=== PATIENT | male | born 1955 | race Caucasian/White ===

== ENCOUNTER 2022-11-04 21:09 | Emergency (ER) | payer MEDICARE, OTHER ==
--- NOTE | 2022-11-04 21:24 | ED Lower Extremity ---
General Stated Complaint: LEFT FOOT INJURY History of Present Illness Date Seen by Provider: Nov 04, 2022 Time Seen by Provider: 21:14 Initial Comments 67-year-old male with PMH of DM2, is here with complaints of left foot redness, swelling, and pain for the past 1 week. Patient went to urgent care and was told that he likely has gout and was given a couple tablets of colchicine which she has finished, and which did not help. Denies injury, trauma, falls, fever and chills, calf pain or calf swelling. Allergies and Home Medications Allergies Coded Allergies: No Known Drug Allergies (Unverified , 11/04/22) Patient Home Medication List Home Medication List Reviewed: Yes Review of Systems Constitutional: no symptoms reported EENTM: no symptoms reported Respiratory: no symptoms reported Cardiovascular: no symptoms reported Gastrointestinal: no symptoms reported Genitourinary: no symptoms reported Musculoskeletal: joint swelling Skin: see HPI, lesions Psychiatric/Neurological: No Symptoms Reported Physical Exam Vital Signs Vital Signs - First Documented 11/04/22 21:15 Temp 37.7 Pulse 95 Resp 18 B/P (MAP) 144/72 (96) Pulse Ox 95 O2 Delivery Room Air Capillary Refill : Height, Weight, BMI Height: '" Weight: lbs. oz. kg; BMI Method: General Appearance: WD/WN, no apparent distress HEENT: PERRL/EOMI Legs: left leg non-tender, left leg normal inspection, left leg normal range of motion, left leg no evidence of injury Ankles: left ankle non-tender, left ankle normal inspection, left ankle normal range of motion, left ankle no evidence of injury Feet: left foot normal range of motion, left foot no evidence of injury, left foot infection, left foot soft tissue tenderness, left foot swelling (Nonpitting swelling over the foot, with erythema of the forefoot and toes with a closed blister between the first and second toe. No open wounds seen on the feet. Erythematous area is warm to touch. No discharge or pus seen. N/V bundle intact. Skin marking with marker done.) Progress/Results/Core Measures Results/Orders Lab Results Laboratory Tests Test 11/04/22 21:21 Range/Units White Blood Count 12.6 H 4.3-11.0 10^3/uL Red Blood Count 4.44 4.30-5.52 10^6/uL Hemoglobin 13.2 L 13.3-17.7 g/dL Hematocrit 39 L 40-54 % Mean Corpuscular Volume 87 80-99 fL Mean Corpuscular Hemoglobin 30 25-34 pg Mean Corpuscular Hemoglobin Concent 34 32-36 g/dL Red Cell Distribution Width 12.7 10.0-14.5 % Platelet Count 166 130-400 10^3/uL Mean Platelet Volume 10.6 9.0-12.2 fL Immature Granulocyte % (Auto) 0 % Neutrophils (%) (Auto) 72 42-75 % Lymphocytes (%) (Auto) 19 12-44 % Monocytes (%) (Auto) 8 0-12 % Eosinophils (%) (Auto) 1 0-10 % Basophils (%) (Auto) 1 0-10 % Neutrophils # (Auto) 9.1 H 1.8-7.8 10^3/uL Lymphocytes # (Auto) 2.4 1.0-4.0 10^3/uL Monocytes # (Auto) 1.0 0.0-1.0 10^3/uL Eosinophils # (Auto) 0.1 0.0-0.3 10^3/uL Basophils # (Auto) 0.1 0.0-0.1 10^3/uL Immature Granulocyte # (Auto) 0.0 0.0-0.1 10^3/uL My Orders Orders - DOUGLAS SAENZ MD Cbc With Automated Diff (11/04/22 21:24) Sulfamethoxazole/Trimet Ds Tab (Bactrim (11/04/22 21:30) Vital Signs/I&O 11/04/22 21:15 Temp 37.7 Pulse 95 Resp 18 B/P (MAP) 144/72 (96) Pulse Ox 95 O2 Delivery Room Air Progress Progress Note : Progress Note 1. LEFT FOOT CELLULITIS: - CBC: WBC is elevated to 12 - Pt's vitals stable and afebrile - Bactrim DS STAT in ER, Prescription for BActrim DS Q12H for 12 days prescribed - Follow up with PCP in 3 to 7 days. Make appointment with Podiatry and follow up within a week. -Fever develops, and symptoms worsen or extend past the skin marking, return to ER. -Advised to keep foot clean, and apply antibiotic ointment to the blister -The patient was seen in the ED, and treated appropriately to presentation at a specific point in time. Patient is informed that there is a possibility that disease and illness can evolve and change in acuity rapidly or slowly after patient is discharged from the ER. Precautionary advice given to the patient for immediate return to ER if symptoms worsen or do not resolve, and to seek emergency care sooner rather than later. Pt also advised on the importance of PCP follow up and compliance with management and follow up plan with PCP and/or specialist, as this is part of the management plan. Pt verbally expressed understanding. 2. MEDICATION REFILL: - Metformin 500mg bid , refilled for 14 days until pt can get into PCP Departure Impression Primary Impression: Cellulitis of left foot Disposition: HOME, SELF-CARE Condition: Stable Departure-Patient Inst. Referrals: MARIBELL JIM MD (PCP/Family) Primary Care Physician PODIATRY DR BAPTISTE Patient Instructions: Cellulitis (Skin Infection), Adult (DC), Cellulitis (Skin Infection), Adult ED Add. Discharge Instructions: - Prescription for BActrim DS Q12H for 12 days prescribed - Follow up with PCP in 3 to 7 days. Make appointment with Podiatry and follow up within a week. -If fever develops, and symptoms worsen or extend past the skin marking, return to ER. - Metformin 500mg bid , refilled for 14 days until pt can get into PCP -Advised to keep foot clean, and apply antibiotic ointment to the blister Scripts Sulfamethoxazole/Trimethoprim (Bactrim Ds Tablet) 800 Mg-160 Mg Tablet 1 EACH PO Q12H for 14 Days, #28 TAB Prov: DOUGLAS SAENZ MD 11/04/22 DOUGLAS SAENZ MD Nov 04, 2022 21:24
[2022-11-04 21:30] LABS: BASOPHILS # (AUTO) 0.1 10^3/uL (0.0-0.1); BASOPHILS % (AUTO) 1 % (0-10); EOSINOPHILS # (AUTO) 0.1 10^3/uL (0.0-0.3); EOSINOPHILS % (AUTO) 1 % (0-10); HEMATOCRIT 39 % (40-54); HEMOGLOBIN 13.2 g/dL (13.3-17.7); LYMPHOCYTES # (AUTO) 2.4 10^3/uL (1.0-4.0); LYMPHOCYTES % (AUTO) 19 % (12-44); MEAN CORPUSCULAR HEMOGLOBIN 30 pg (25-34); MEAN CORPUSCULAR HGB CONC 34 g/dL (32-36); MEAN CORPUSCULAR VOLUME 87 fL (80-99); MEAN PLATELET VOLUME 10.6 fL (9.0-12.2); MONOCYTES % (AUTO) 8 % (0-12); NEUTROPHILS # (AUTO) 9.1 10^3/uL (1.8-7.8); NEUTROPHILS % (AUTO) 72 % (42-75); PLATELET COUNT 166 10^3/uL (130-400); WHITE BLOOD COUNT 12.6 10^3/uL (4.3-11.0)
[2022-11-04] MEDS ORDERED: TRIM/SULFAMETH 160/800 (SEPTRA DS) TAB PO ONE (21:30)
[2022-11-04 21:39] VITALS: BP 144/72
[2022-11-04] MEDS ORDERED: SULF-221 PO (21:45)
== END 2022-11-04 21:47 | disposition home or self-care (01) ==
LOC: EDUNIT# 21:09 → ER FS 21:13
DX: L03.116 Cellulitis of left lower limb (principal); E11.9 Type 2 diabetes mellitus without complications; Z28.310 Unvaccinated for COVID-19
CPT/HCPCS: 36415; 85025